=== PATIENT | female | born 1960 | race Caucasian/White ===

== ENCOUNTER 2017-08-07 08:12 | Emergency (ER) | payer OTHER ==
[~2017-08-07] VITALS: Ht 170.2 cm; Wt 85.0 kg
[~2017-08-07 08:12] MED LIST: ABILIFY5 MG PO; ALBUTEROL SULF8.5 GM IH; AMOXICILLIN500 M1 PO; CATAPRES0.1 MG PO; CYMBALTA60 MG PO; FLEXERIL10 MG PO; FLEXERIL5 MG PO; FOLIC ACID1 MG PO; HYDROCODON-ACE1 EAC7 PO; IBUPROFEN800 MG PO; IRON SUPPLEMEN325 MG PO; LEVOXYL100 MCG PO; MOBIC7.5 MG PO; MOTRIN600 MG PO; NAPROSYN500 MG PO; ZITHROMAX Z-PA250 MG PO; ZOFRAN ODT8 MG PO; [UNRECOGNIZED DRUG - REMARK]
[2017-08-07 08:20] VITALS: BP 157/91
[2017-08-07] MEDS ORDERED: AUGMENTIN875 MG PO (10:10)
== END 2017-08-07 10:37 | disposition home or self-care (01) ==
LOC: EME 08:12
PROC: 3E0T3BZ Introduction of Anesthetic Agent into Peripheral Nerves and Plexi, Percutaneous Approach (ICD-10-PCS; principal; 2017-08-07)
DX: K04.7 Periapical abscess without sinus (principal); L03.211 Cellulitis of face; G89.29 Other chronic pain; F41.9 Anxiety disorder, unspecified; F32.9 Major depressive disorder, single episode, unspecified; F17.210 Nicotine dependence, cigarettes, uncomplicated; Z88.2 Allergy status to sulfonamides; Z88.1 Allergy status to other antibiotic agents
CPT/HCPCS: 99281; 99284